=== PATIENT | male | born 1980 | race Caucasian/White ===

== ENCOUNTER 2022-03-05 15:28 | Emergency (ER) | payer OTHER ==
[~2022-03-05] VITALS: Ht 177.8 cm; Wt 72.6 kg
== END 2022-03-05 23:23 | disposition home or self-care (01) ==
LOC: ER 15:28
DX: R33.8 Other retention of urine (principal); L89.899 Pressure ulcer of other site, unspecified stage; N20.0 Calculus of kidney; K80.20 Calculus of gallbladder without cholecystitis without obstruction

== ENCOUNTER 2022-03-07 15:18 | Day surgery (SDC) | payer OTHER ==
[~2022-03-07] VITALS: Ht 177.8 cm; Wt 72.6 kg
== END 2022-03-07 20:30 | disposition home or self-care (01) ==
LOC: CIR.AMB 15:18 → O/R 20:30
PROVIDERS: ATTEND Emergency Medicine Hospice and Palliative Medicine
DX: R33.8 Other retention of urine (principal); L89.309 Pressure ulcer of unspecified buttock, unspecified stage; Z20.822 Contact with and (suspected) exposure to COVID-19; G82.20 Paraplegia, unspecified; L89.324 Pressure ulcer of left buttock, stage 4; L89.314 Pressure ulcer of right buttock, stage 4

== ENCOUNTER 2023-01-20 14:24 | Emergency (ER) | payer OTHER ==
[~2023-01-20] VITALS: Ht 185.4 cm; Wt 74.8 kg
== END 2023-01-20 20:01 | disposition home or self-care (01) ==
LOC: ER 14:24
DX: N39.0 Urinary tract infection, site not specified (principal); G82.20 Paraplegia, unspecified

== ENCOUNTER 2023-03-03 11:52 | Emergency (ER) | payer OTHER ==
[~2023-03-03] VITALS: Ht 180.3 cm; Wt 70.3 kg
[2023-03-03] MEDS ORDERED: LEVOFLOXACIN750 MG PO (14:24)
== END 2023-03-03 14:59 | disposition home or self-care (01) ==
LOC: ER 11:52
DX: R06.02 Shortness of breath (principal); Z20.822 Contact with and (suspected) exposure to COVID-19